=== PATIENT | female | born 2005 | race Caucasian/White ===

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

== ENCOUNTER 2025-09-10 08:14 | Emergency (ER) | payer BC, SELFPAY ==
[2025-09-10] VITALS (7 sets, daily range): BP systolic 124–165; BP diastolic 91–114; PULSE 90–120; RESP 13–28; TEMP 35.6; O2SAT 97–99; BMI 31.6
--- OUTSIDE RECORDS SUMMARY | 2025-09-10 08:18 | XMS_ITS | Clinical Summary ---
Author Organization [facility] Address [address] [place] [address]. [place] [address] Care Team Providers [employer]ator Name Role Phone Sukhdev Paul PA-C Primary Care Provider + Sukhdev Paul PA-C Unavailable Karla Prado Unavailable Teetee Alfaro [facility], [facility] Unavailable [phone] Allergies No known active allergies Medications * This document contains information received from the source organization and may not represent a complete record from that organization. etonogestrel-et hinyl estradiol (NUVARING) 0.12-0.015 MG/24HR vaginal ringIndications :Encounter for female control Place 1 each vaginally every 30 days. 3 each 3 4 Active venlafaxine (EFFEXOR XR) 75 MG 24 hr capsuleIndicati ons:Generalized anxiety disorder,Major depressive disorder with single episode, in partial remission TAKE 1 CAPSULE BY MOUTH EVERY DAY 90 capsule 1 5 Active hydrOXYzine HCl (ATARAX) 25 MG tabletIndicatio ns:Generalized anxiety disorder,Major depressive disorder with single episode, in partial remission TAKE 1 TABLET BY MOUTH 3 TIMES DAILY NEEDED FOR ANXIETY. 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 [facility] 02/16/2024 Encounters Date Type Department Care Team Description 07/16/2025 Refill [place] [address] [address] [facility], [address] [place] [address] Sukhdev Paul PA-C Medication Refill 06/23/2025 Results [address]-Up [address] [facility], [address] [place] [address] Sukhdev Paul PA-C Subj: Message about your results 06/20/2025 MyC Medical Advice [place] [address] [address] [facility], [address] [place] [address] Sukhdev Paul PA-C 06/18/2025 10:00 AM CDT Office Visit [address] [place] [facility], [address] [place] [address] Sukhdev Paul PA-C Annual physical exam (Primary Dx); Screening for STDs (sexually transmitted diseases); Cervical cancer screening; Generalized anxiety disorder; Major depressive disorder with single episode, in partial remission; Encounter for female control; Immunity status testing; Encounter for testing for latent tuberculosis; Moderate recurrent major depression (H) 06/18/2025 Travel from Last 3 Months Immunizations Immunization Administration Dates Next Due COVID-19 Bivalent 18+ (Moderna) 07/28/2022 COVID-19 Monovalent 12+ (Pfizer 2021) 11/11/2021 ,03/03/2021,02/10/2021 DTaP, Unspecified 03/23/2025,11/05/2014 DTaP/HepB/IPV 06/18/2025,05/15/2025,04/17/2025 Hep B, Adult (Heplisav- B) 05/15/2025,04/17/2025 INFLUENZA,TRIVALENT (FLUCELVAX) 06/13/2025,07/18 Influenza Vaccine >6 months,quad, PF 08/08/2023 MMR/V (Proquad) 03/24/2009 TDAP (Adacel,Boostrix) 03/23/2025 Varicella (Varivax) 03/24/2009 Family History Medical History Relation Comments Hyperlipidemia Father Thyroid Disease Father Coronary Artery Disease Maternal Grandfather Depression Maternal Grandfather Other Cancer Maternal Grandfather skin cancer Anxiety Disorder Mother Breast Cancer Mother in 2001 and 2022 Genetic Disorder Mother CHEK-2 Mutation Hypertension Mother Skin Cancer Mother Other Cancer Paternal Grandfather Lung Cancer Relation Status Comments Father Maternal Grandfather Mother Paternal Grandfather Social History Tobacco Use Types Packs/Day Years Used Date Smoking Tobacco: Former Cigarettes Q uit: 11/21/2023 Clove cigarettes or kreteks Smokeless Tobacco: Never Tobacco Cessation:Counseling Given: Not Answered Alcohol Use Standard Drinks/Week Comments Yes 0 (1 standard drink = 0.6 oz pur e alcohol) very rare, 1-2 times per week Social Connection and Isolation Panel Answer Date Recorded Frequency of Communication with Friends and Fami ly Not on file 06/18/2025 How often do you get together with friends or re latives? Once a week 06/18/2025 Attends Church Services Not on file 06/18 Active Member of Clubs or Organizations Not on f ile 06/18/2025 Attends Club or Organization Meetings Not on david e 06/18/2025 Marital Status Not on file 06/18/2025 PHQ-2 Answer Date Recorded PHQ-2 Score 2 06/18/2025 [facility] [facility] - Occupational Stress Questionnaire Answer Date Recorded Do you feel stress - tense, restless, nervous, or anxious, or unable to sleep at night because your mind is troubled all the time - these days? Rather much 06/18/2025 Exercise Vital Sign Answer Date Recorde d On average, how many days pe r week do you engage in moderate to strenuous exercise (like a brisk walk)? 3 days Minutes of Exercise per Session Not on file 06/18/2025 Adolescent Education Answer Date Record ed Getting School Help Needed Not on file 07/27 Food Insecurity Answer Date Recorded Within the past 12 months, d id you worry that your food would run out before you got money to buy more? No 06/18/2025 Within the past 12 months, d id the food you bought just not last and you didn t have money to get more? No 06/18/2025 Housing Stability Answer Date Recorded Do you have housing? (Maribel martini is defined as stable permanent housing and does not include staying outside in a car, in a tent, in an abandoned building, in an overnight care home, or couch-surfing.) Yes 06/18/2025 Are you worried about losing your housing? No 06/18/2025 Financial Resource Strain Answer Date R ecorded Within the past 12 months, h ave you or your family members you live with been unable to get utilities (heat, electricity) when it was really needed? No 06/18/2025 Transportation Needs Answer Date Record ed Within the past 12 months, h as lack of transportation kept you from medical appointments, getting your medicines, non-medical meetings or appointments, work, or from getting things that you need? No 06/18/2025 Interpersonal Safety Answer Date Record ed Do you feel physically and e motionally safe where you currently live? Yes 06/18/2025 Within the past 12 months, h ave you been hit, slapped, kicked or otherwise physically hurt by someone? No 06/18/2025 Within the past 12 months, h ave you been humiliated or emotionally abused in other ways by your partner or ex-partner? No 06/18/2025 Comments No Sex and Gender Information Value Date Recorded Sex Assigned at Not on file Legal Sex Female 4:16 PM CDT Gender Identity Not on file Sexual Orientation Not on file Last Filed Vital Signs Vital Sign Reading Time Taken Comments Blood Pressure 120/75 06/18/2025 10:28 AM CDT Pulse 97 06/18/2025 10:01 AM CDT Temperature 36.6 C (97.9 F) 06/18/2025 10:01 AM CDT Respiratory Rate 18 06/18/2025 10:01 AM CDT Oxygen Saturation 97% 06/18/2025 10:01 AM CDT Inhaled Oxygen Concentration - - Weight 84.8 kg (187 lb) 06/18/2025 10:01 AM CDT Height 164.6 cm (5' 4.8) 06/18/2025 10:01 AM CD T Body Mass Index 31.31 06/18/2025 10:01 AM CDT Plan of Treatment Upcoming Encounters Date Type Department Care Team (Late st Contact Info) Description 06/22/2026 10:00 AM CDT Office Visit [facility] [address], [address] [place] [address] Sukhdev Paul PA-C [address] [place] [address] Health Maintenance Due Date Last Done Comments HPV VACCINE (1 - 3-dose series) 2019 MENINGITIS B VACCINE (1 of 2 - Standard) 2020 COVID-19 VACCINE ( season) 2025 07/18/2024, 07/28/2022, 11/11/2021, Additional history exists DTAP/TDAP/TD VACCINE (3 - Td or Tdap) 12/19/2025 06/18/2025, 05/15/2025, 04/17/2025, Additional history exists PHQ-9 12/19/2025 06/18/2025, 11/05, 10/21/2024, Additional history exists ANNUAL REVIEW OF HM ORDERS 06/18/202606/18, 06/17/2024, 04/06/2023 CHLAMYDIA SCREENING 06/18/2026 06/18/2025, 06/17/2024, 04/06/2023 YEARLY PREVENTIVE VISIT 06/18/2026 06/18/20 25, 06/17/2024, 04/06/2023 PAP 06/18/2028 06/18/2025 ADVANCE CARE PLANNING 06/18/2030 06/18/2025 , 06/17/2024, 04/09/2023 ZOSTER VACCINE (1 of 2) 2054 HEPATITIS C SCREENING Completed 02/16/2024 HIV SCREENING Completed 02/16/2024 DEPRESSION ACTION PLAN Completed 09/11/2024 INFLUENZA VACCINE Completed 06/13/2025, , 08/08/2023 HEPATITIS B VACCINE Completed 06/18/2025, 05/15/2025, 05/15/2025, Additional history exists MENINGITIS VACCINE Aged Out No longer eligible based on patient's age to complete this topic PNEUMOCOCCAL VACCINE: PEDIATRICS (0 to 5 YEARS) AND AT-RISK PATIENTS (6 to 49 YEARS) Aged Out No longer eligible based on patient's age to complete this topic Procedures Procedure Name Priority Date/Time Associated Diagnosis Comments CHLAMYDIA TRACHOMATIS PCR Routine 06/18/2025 10:52 AM CDT Screening for STDs (sexually transmitted diseases) NEISSERIA GONORRHOEAE PCR Routine 06/18/2025 10:52 AM CDT Screening for STDs (sexually transmitted diseases) CBC WITH PLATELETS & DIFFERENTIAL Routine 06/18/2025 10:49 AM CDT Annual physical exam QUANTIFERON-TB GOLD PLUS Routine 06/18/2025 10:49 AM CDT Encounter for testing for latent tuberculosis QUANTIFERON TB GOLD PLUS Routine 06/18/2025 10:49 AM CDT Encounter for testing for latent tuberculosis QUANTIFERON TB GOLD PLUS PURPLE TUBE Routine 06/18/2025 10:49 AM CDT Encounter for testing for latent tuberculosis QUANTIFERON TB GOLD PLUS YELLOW TUBE Routine 06/18/2025 10:49 AM CDT Encounter for testing for latent tuberculosis QUANTIFERON TB GOLD PLUS GREEN TUBE Routine 06/18/2025 10:49 AM CDT Encounter for testing for latent tuberculosis QUANTIFERON TB GOLD PLUS MEZA TUBE Routine 06/18/2025 10:49 AM CDT Encounter for testing for latent tuberculosis QUANTIFERON TB GOLD PLUS PRIMARY Routine 06/18/2025 10:49 AM CDT Encounter for testing for latent tuberculosis QUANTIFERON TB GOLD PLUS COLLECTION Routine 06/18/2025 10:49 AM CDT Encounter for testing for latent tuberculosis CBC WITH PLATELETS AND DIFFERENTIAL Routine 06/18/2025 10:49 AM CDT Annual physical exam COMPREHENSIVE METABOLIC PANEL Routine 06/18/2025 10:49 AM CDT Annual physical exam HEPATITIS B SURFACE ANTIBODY Routine 06/18/2025 10:49 AM CDT Immunity status testing GYNECOLOGIC CYTOLOGY Routine 06/18/2025 10:26 AM CDT Cervical cancer screening HIV ANTIGEN ANTIBODY COMBO Routine 02/16/2024 1:16 PM CDT Screening for HIV (human immunodeficiency virus) Screening for STDs (sexually transmitted diseases) HEPATITIS C SCREEN REFLEX TO HCV RNA QUANT AND GENOTYPE Routine 02/16/2024 1:16 PM CDT Need for hepatitis C screening test from Last 3 Months or Most Recently Relevant to Health Maintenance Results * NEISSERIA GONORRHOEA PCR (06/18/2025 10:52 AM CDT) Neisseria gonorrhoeae Negative Negative 06/19/2025 9:56 AM CDT [facility] Comment:Negative for N. gono rrhoeae rRNA by payroll accountant mediated amplification. A negative result by payroll accountant mediated amplification does not preclude the presence of C. trachomatis infection because results are dependent on proper and adequate collection, absence of inhibitors and sufficient rRNA to be detected. Neisseria gonorrhoeae Specimen Source Urine, Voided 06/19/2025 9:56 AM CDT [facility] Urine URETHRAL STRUCTURE / Unknown Non-blood Collection / Unknown 06/18/2025 10:52 AM CDT 06/18/2025 10:52 AM CDT us Sukhdev Paul PA-C LAB - MICRO GENERAL ORDE YU Final Result [facility] Inf. Diseases Diag. Lab [address] [facility], [address] [place] [address], [facility] * CHLAMYDIA TRACHOMATIS PCR (06/18/2025 10:52 AM CDT) Chlamydia trachomatis Negative Negative 06/19/2025 9:56 AM CDT [facility] Comment:A negative result by payroll accountant mediated amplification does not preclude the presence of C. trachomatis infection because results are dependent on proper and adequate collection, absence of inhibitors and sufficient rRNA to be detected. Chlamydia trachomatis Specimen Source Urine, Voided 06/19/2025 9:56 AM CDT [facility] Urine URETHRAL STRUCTURE / Unknown Non-blood Collection / Unknown 06/18/2025 10:52 AM CDT 06/18/2025 10:52 AM CDT Sukhdev Paul PA-C LAB - MICRO GENERAL ORDE YU Final Result [facility] Inf. Diseases Diag. Lab [address] [facility], [address] [place] [address] * Quantiferon TB Gold Plus (06/18/2025 10:49 AM CDT) [facility] Quantiferon-TB Gold Plus Negative Negative 06/20/2025 1:24 PM CDT [facility] CORE/PROT/END O Comment: No interferon gamma response to M.tuberculosis antigens was detected. Infection with M.tuberculosis is unlikely, however a single negative result does not exclude infection. In patients at high risk for infection, a second test should be considered in accordance with the 2017 ATS/IDSA/CDC Clinical Pract ice Guidelines for Diagnosis of Tuberculosis in Adults and Children TB1 Ag minus Nil Value 0.26 IU/mL 06/20/2025 1:24 PM CDT [facility] CORE/PROT/END O TB2 Ag minus Nil Value 0.22 IU/mL 06/20/2025 1:24 PM CDT [facility]/PROT/END O Mitogen minus Nil Result 9.97 IU/mL 06/20/2025 1:24 PM CDT SPECIALTY CORE/PROT/END O Nil Result 0.03 IU/mL 06/20/2025 1:24 PM CDT [facility] C[facility]/PROT/END O Blood BLOOD SPECIMEN / Unknown Venipuncture / Unknown 06/18/2025 10:49 AM CDT 06/18/2025 10:48 PM CDT Sukhdev Paul PA-C LAB - MICRO GENERAL ORDJusto RABLES Final Result [facility] C[facility]/PROT/ENDO [facility] Specialty Core/Prot/Endo [address] [facility], [address] * Quantiferon TB Gold Plus Purple Tube (06/18/2025 10:49 AM CDT) Quantiferon Mitogen 10.00 IU/mL 06/20/2025 8:53 AM CDT [facility]/PROT/ENDO Blood BLOOD SPECIMEN / Unknown Venipuncture / Unknown 06/18/2025 10:49 AM CDT 06/18/2025 10:48 PM CDT Sukhdev Paul PA-C LAB - MICRO GENERAL SAMIRA NICHOLAS Final Result [facility] CORE/PROT/ENDO [facility] Specialty Core/Prot/Endo [address] [facility], [address] * Quantiferon TB Gold Plus Yellow Tube (06/18/2025 10:49 AM CDT) Quantiferon TB2 Tube 0.25 06/20/2025 8:52 AM CDT SPECIALTY CORE/PROT/ENDO Blood BLOOD SPECIMEN / Unknown Venipuncture / Unknown 06/18/2025 10:49 AM CDT 06/18/2025 10:48 PM CDT Sukhdev Paul PA-C LAB - MICRO GENERAL SAMIRA NICHOLAS Final Result [facility] CORE/PROT/ENDO [facility] Specialty Core/Prot/Endo [address] [facility], [address] * Quantiferon TB Gold Plus Green Tube (06/18/2025 10:49 AM CDT) Quantiferon TB1 Tube 0.29 IU/mL 06/20/2025 8:52 AM CDT SPECIALTY CORE/PROT/ENDO Blood BLOOD SPECIMEN / Unknown Venipuncture / Unknown 06/18/2025 10:49 AM CDT 06/18/2025 10:48 PM CDT Sukhdev Paul PA-C LAB - MICRO GENERAL ORDE YU Final Result [facility]TY CORE/PROT/ENDO Specialty Core/Prot/Endo [address] [facility], [address] * Quantiferon TB Gold Plus Meza Tube (06/18/2025 10:49 AM CDT) Quantiferon Nil Tube 0.03 IU/mL 06/20/2025 8:52 AM CDT [facility] CORE/PROT/ENDO Blood BLOOD SPECIMEN / Unknown Venipuncture / Unknown 06/18/2025 10:49 AM CDT 06/18/2025 10:48 PM CDT Sukhdev Paul PA-C LAB - MICRO GENERAL SAMIRA NICHOLAS Final Result [facility] SPECIALTY CORE/PROT/ENDO Specialty Core/Prot/Endo [address] [facility], [address] * CBC with platelets and differential (06/18/2025 10:49 AM CDT) WBC Count 6.58 4.00 - 11.00 10e3/uL 06/18/2025 10:59 AM CDT [facility] RBC Count 5.11 3.80 - 5.20 10e6/uL 06/18/2025 10:59 AM CDT [facility] Hemoglobin 15.2 11.7 - 15.7 g/dL 06/18/2025 10:59 AM CDT [facility] Hematocrit 45.0 35.0 - 47.0 % 06/18/2025 10:59 AM CDT [facility] MCV 88.1 78.0 - 100.0 fL 06/18/2025 10:59 AM CDT [facility] MCH 29.7 26.5 - 33.0 pg 06/18/2025 10:59 AM CDT [facility] MCHC 33.8 31.5 - 36.5 g/dL 06/18/2025 10:59 AM CDT [facility] RDW 11.8 10.0 - 15.0 % 06/18/2025 10:59 AM CDT [facility] Platelet Count 336 150 - 450 10e3/uL 06/18/2025 10:59 AM CDT [facility] % Neutrophils 52.3 % 06/18/2025 10:59 AM CDT [facility] % Lymphocytes 37.7 % 06/18/2025 10:59 AM CDT [facility] % Monocytes 6.7 % 06/18/2025 10:59 AM CDT [facility] % Eosinophils 2.9 % 06/18/2025 10:59 AM CDT [facility] % Basophils 0.2 % 06/18/2025 10:59 AM CDT [facility] % Immature Granulocytes 0.2 % 06/18/2025 10:59 AM CDT [facility] Absolute Neutrophils 3.45 1.60 - 8.30 10e3/uL 06/18/2025 10:59 AM CDT [facility] Absolute Lymphocytes 2.48 0.80 - 5.30 10e3/uL 06/18/2025 10:59 AM CDT [facility] Absolute Monocytes 0.44 0.00 - 1.30 10e3/uL 06/18/2025 10:59 AM CDT [facility] Absolute Eosinophils 0.19 0.00 - 0.70 10e3/uL 06/18/2025 10:59 AM CDT [facility] Absolute Basophils <0.04 0.00 - 0.20 10e3/uL 06/18/2025 10:59 AM CDT [facility] Absolute Immature Granulocytes <0.04 <=0.40 10e3/uL 06/18/2025 10:59 AM CDT [facility] Blood STRUCTURE OF LEFT UPPER LIMB / Unknown Venipuncture / Unknown 06/18/2025 10:49 AM CDT 06/18/2025 10:50 AM CDT us Sukhdev Paul PA-C LAB - BLOOD ORDERABLES F inal Result LABORATORY [facility] [address] [facility], [address] [place] [address] * Hepatitis B Surface Antibody (06/18/2025 10:49 AM CDT) [facility] Signature Hepatitis B Surface Antibody Reactive 06/18/2025 10:01 PM CDT [facility] Comment:A reactive result in dicates recovery from acute or chronic hepatitis B virus (HBV) infection or acquired immunity from HBV vaccination. This assay does not differentiate between a vaccine-induced immune response and an immune response induced by infection with HBV. A positive total antihepatitis B core result would indicate that the hepatitis B surface antibody response is due to past HBV infection. Hepatitis B Surface Antibody Instrument Value >1,000.00 <8.5 m[IU]/mL 06/18/2025 10:01 PM CDT [facility] Comment: Assay performance characteristics have not been established for the use of the Elecsys Anti-HBs assay as an aid in determining susceptibility to HBV infection prior to or following vaccination in infants, children, or adolescents. Blood STRUCTURE OF LEFT UPPER LIMB / Unknown Venipuncture / Unknown 06/18/2025 10:49 AM CDT 06/18/2025 10:50 AM CDT Sukhdev Paul PA-C LAB - BLOOD ORDERABLES F inal Result LABORATORY [facility] [place] [facility] [address] [facility], [address] * Quantiferon TB Gold Plus Collection (06/18/2025 10:49 AM CDT) Blood BLOOD SPECIMEN / Unknown Venipuncture / Unknown 06/18/2025 10:49 AM CDT 06/18/2025 10:50 AM CDT Sukhdev Paul PA-C LAB - MICRO GENERAL ORDE RABLES Final Result SPECIALTY CORE/PROT/ENDO Specialty Core/Prot/Endo [address] [facility], [address] * Quantiferon TB Gold Plus Primary (06/18/2025 10:49 AM CDT) Blood BLOOD SPECIMEN / Unknown Venipuncture / Unknown 06/18/2025 10:49 AM CDT 06/18/2025 10:48 PM CDT Sukhdev Paul PA-C LAB - MICRO GENERAL SAMIRA NICHOLAS Final Result [facility] CORE/PROT/ENDO [facility] Specialty Core/Prot/Endo [address] [facility], [address] [place] [address] * Comprehensive metabolic panel (BMP + Alb, Alk Phos, ALT, AST, Total. Bili, TP) (06/18/2025 10:49 AMCDT) Sodium 139 135 - 145 mmol/L 06/18/2025 9:53 PM CDT [facility] Potassium 4.2 3.4 - 5.3 mmol/L 06/18/2025 9:53 PM CDT [facility] Carbon Dioxide (CO2) 22 22 - 29 mmol/L 06/18/2025 9:53 PM CDT [facility] Anion Gap 11 7 - 15 mmol/L 06/18/2025 9:53 PM CDT [facility] Urea Nitrogen 11.5 6.0 - 20.0 mg/dL 06/18/2025 9:53 PM CDT [facility] Creatinine 0.66 0.51 - 0.95 mg/dL 06/18/2025 9:53 PM CDT [facility] GFR Estimate >90 >60 mL/min/1.7 3m2 06/18/2025 9:53 PM CDT [facility] Comment:eGFR calculated usin 2020 CKD-EPI equation. Calcium 9.8 8.8 - 10.4 mg/dL 06/18/2025 9:53 PM CDT [facility] Chloride 106 98 - 107 mmol/L 06/18/2025 9:53 PM CDT [facility] Glucose 87 70 - 99 mg/dL 06/18/2025 9:53 PM CDT [facility] Alkaline Phosphatase 52 40 - 150 U/L 06/18/2025 9:53 PM CDT [facility] AST 25 0 - 45 U/L 06/18/2025 9:53 PM CDT [facility] ALT 19 0 - 50 U/L 06/18/2025 9:53 PM CDT [facility] Protein Total 8.1 6.4 - 8.3 g/dL 06/18/2025 9:53 PM CDT [facility] Albumin 4.4 3.5 - 5.2 g/dL 06/18/2025 9:53 PM CDT [facility] Bilirubin Total 0.3 <=1.2 mg/dL 06/18/2025 9:53 PM CDT [facility] Blood STRUCTURE OF LEFT UPPER LIMB / Unknown Venipuncture / Unknown 06/18/2025 10:49 AM CDT 06/18/2025 10:50 AM CDT us Sukhdev Paul PA-C LAB - BLOOD ORDERABLES F inal Result [facility] [place] [facility] [address] [facility], [address] [phone] * Pap Screen Only - Recommended Age 21 - 24 Years (06/18/2025 10:26 AM CDT) Interpretation Negative for Intraepithelial Lesion or Malignancy (NILM) 06/23/2025 8:56 AM CDT [facility] LABS at 0856 CDT Comment Papanicolaou Test Limitations: Cervical cytology is a screening test with limited sensitivity, and regular screening is critical for cancer prevention. Pap tests are primarily effective for the diagnosis/prevent ion of squamous cell carcinoma, not adenocarcinoma or other cancers. 06/23/2025 8:56 AM CDT [facility] Specimen Adequacy Satisfactory for evaluation, endocervical/condon sformation zone component absent 06/23/2025 8:56 AM CDT [facility] Clinical Information none 06/23/2025 8:56 AM CDT [facility] LMP/Menopause Date 05/30/2025 06/23/2025 8:56 AM CDT [facility] Reflex Testing No 06/23/2025 8:56 AM CDT [facility] Previous Abnormal? No 06/23/2025 8:56 AM CDT [facility] Performing Labs The technical component of this testing was completed at [facility]. Stain controls for all stains resulted within this report have been reviewed and show appropriate reactivity. 06/23/2025 8:56 AM CDT [facility] Brushing ENDOCERVICAL STRUCTURE / Unknown 06/18/2025 10:26 AM CDT 06/18/2025 10:46 AM CDT Sukhdev Paul PA-C LAB - BEAKER AP Final Re sult [facility] [address] [facility], [address] [place] [phone] * HIV Antigen Antibody Combo (02/16/2024 1:16 PM CDT) HIV Antigen Antibody Combo Nonreactive Nonreactive 02/16/2024 5:59 PM CDT [facility] Comment:Negative HIV-1 p24 a ntigen and HIV-1/2 antibody screening test results usually indicate the absence of HIV-1 and HIV-2 infection. However, such negative results do not rule-out acute HIV infection. If acute HIV-1 or HIV-2 infection is suspected, detection of HIV-1 or HIV-2 RNA is recommended. Blood STRUCTURE OF LEFT UPPER LIMB / Unknown Venipuncture / Unknown 02/16/2024 1:16 PM CDT 02/16/2024 1:16 PM CDT Sukhdev Paul PA-C LAB - BLOOD ORDERABLES F inal Result Performing Organization Address City/[facility]/ZIP Co de Phone Number [facility] [place] [facility] [address] [facility], [address] [place] [phone] * Hepatitis C Screen Reflex to HCV RNA Quant and Genotype (02/16/2024 1:16 PM CDT) Hepatitis C Antibody Nonreactive Nonreactive 02/16/2024 5:38 PM CDT [facility] Comment:A nonreactive screen ing test result does not exclude the possibility of exposure to or infection with HCV. Nonreactive screening test results in individuals with prior exposure to HCV may be due to antibody levels below the limit of detection of this assay or lack of reactivity to the HCV antigens used in this assay. Patients with recent HCV infections (<3 months from time of exposure) may have false- negative HCV antibody results due to the time needed for seroconversion (average of 8 to 9 weeks). Blood STRUCTURE OF LEFT UPPER LIMB / Unknown Venipuncture / Unknown 02/16/2024 1:16 PM CDT 02/16/2024 1:16 PM CDT us Sukhdev Paul PA-C LAB - BLOOD ORDERABLES F inal Result LABORATORY [facility] [place] [facility] [address] [facility], [address] [place] [address] from Last 3 Months or Most Recently Relevant to Health Maintenance Insurance BCBS OUT OF STATE BCBS OUT OF STATE OUT OF STATE Care Teams [employer] Relationship Specialty Start Date End Date Sukhdev Paul PA-C [address] [place], [place] [address] PCP - General Physician Cat Hooker - Medical 04/06/23 Sukhdev Paul PA-C [address] [place], [place] [address] Assigned PCP 03/14/23 Karla Prado GC Genetic Counseling Graduate Program Office [address] [place] [address] [address] [place], [place] [address] Genetic Counselor Genetic Counselor, MS 07/30/23 Teetee Alfaro, [facility], [facility] Assigned Behavioral Health Provider 02/26/24
--- OUTSIDE RECORDS SUMMARY | 2025-09-10 08:18 | XMS_ITS | Encounter Summary ---
Author Organization [place] Address [address] [place] [address]. [place] [address] Care Team Providers Care Day Care Director Name Role Phone Sukhdev Paul PA-C Primary Care Provider + Sukhdev Paul PA-C Unavailable [phone] Karla Prado Unavailable [phone] Teetee Alfaro [facility] Unavailable Encounter Details Date Type Department Care Team (Late st Contact Info) Description 12/25/2023 [facility] Medical Advice [facility] [place] [address] [facility] [address] [place] [address] [facility] Social History Tobacco Use Types Packs/Day Years Used Date Smoking Tobacco: Never Smokeless Tobacco: Never Alcohol Use Standard Drinks/Week Comments Yes 0 (1 standard drink = 0.6 oz pur e alcohol) 1-2 times per week PHQ-2 Answer Date Recorded PHQ-2 Score 2 10/11/2023 Adolescent Education Answer Date Record ed Getting School Help Needed Not on file 07/27 Comments No Sex and Gender Information Value Date Recorded Sex Assigned at Not on file Legal Sex Female 4:16 PM CDT Gender Identity Not on file Sexual Orientation Not on file documented as of this encounter Plan of Treatment Upcoming Encounters Date Type Department Care Team (Late st Contact Info) Description 06/22/2026 10:00 AM CDT Office Visit [facility] [address] [place] [address] Sukhdev Paul PA-C [address] [place] [id number] documented as of this encounter Visit Diagnoses Not on filedocumented in this encounter Additional Health Concerns Assessment Noted Time PHQ-9 Depression Total Score: 5 07/10/20 23 12:07 PM CDT documented as of this encounter Care Teams Day Care Director Relationship Specialty Start Date End Date Sukhdev Paul PA-C [address] [place] [address] PCP - General Physician Cemetery Laborer - Medical 04/06/23 Sukhdev Paul PA-C [address] [place] [address] Assigned PCP 03/14/23 Karla Prado GC Genetic Counseling Graduate Program Office [address] [place] [address] [address] [place] [address] Genetic Counselor Genetic Counselor, MS 07/30/23 Teetee Alfaro, [facility] Assigned Behavioral Health Provider 02/26/24 documented as of this encounter
--- OUTSIDE RECORDS SUMMARY | 2025-09-10 08:18 | XMS_ITS | Clinical Summary ---
Author Organization [facility] Address [address] [address] Care Team Providers Care Hospital Insurance Clerk Name Role Phone Unavailable Primary Care Provider Unavailabl e Source Comments You are receiving this document as you are listed as the primary care provider,follow-up provider, or the patient has been referred to you for consultation.This is in compliance with the Medicare and[facility] EHR Incentive Program,which states Providers who transition their patient to another setting of careor provider of care or refers their patient to another provider of care shouldprovide summary care record for each transition of care or referral. [employer] Allergies No known active allergies Medications No known medications Active Problems No known active problems Immunizations Immunization Administration Dates Next Due HepB Adult (Heplisav-B, 19+ yrs, 2 dose series) 05/15/2025,04/17/2025 Tdap 03/23/2025 Social History Tobacco Use Types Packs/Day Years Used Date Smoking Tobacco: Never Passive Smoke Exposure: Never Smokeless Tobacco: Never Tobacco Cessation:Counseling Given: Not Answered Comments No Sex and Gender Information Value Date Recorded Sex Assigned at Not on file Legal Sex Female 9:29 AM CDT Gender Identity Not on file Sexual Orientation Not on file Last Filed Vital Signs Vital Sign Reading Time Taken Comments Blood Pressure 126/82 09/02/2022 11:30 AM CDT Pulse 99 09/02/2022 11:30 AM CDT Temperature 36.8 C (98.2 F) 09/02/2022 11:30 AM CDT Respiratory Rate 16 09/02/2022 11:30 AM CDT Oxygen Saturation 100% 09/02/2022 11:30 AM CDT Inhaled Oxygen Concentration - - Weight - - Height - - Body Mass Index - - Plan of Treatment Health Maintenance Due Date Last Done Comments Cervical Cancer Screening Due 2004 Chlamydia 2004 Hep C Screening (Preventive Services) 2004 MenB Immunization Discussion 2004 HPV Vaccine (1 - 3-dose series) 2019 HIV Screening (Preventive Services) 2020 Adult Preventive Visit 2022 COVID-19 Vaccine (1 - 2023-2 5 season) 2025 Influenza Vaccine (#1) 2025 DTaP/Tdap/Td Vaccine (2 - Tdap) 03/23/2035 03/23/2025 Zoster/Shingles Vaccine (1 o f 2) 2054 HepB Vaccine Completed 05/15/2025, 04/17/2025 HepA Vaccine Aged Out No longer eligi ble based on patient's age to complete this topic Hib Vaccine Aged Out No longer eligi ble based on patient's age to complete this topic IPV (Polio) Vaccine Aged Out No longe r eligible based on patient's age to complete this topic MCV4 Vaccine Aged Out No longer eligi ble based on patient's age to complete this topic Pneumococcal Vaccine Aged Out No long er eligible based on patient's age to complete this topic Insurance BCBS OUT OF STATE
--- OUTSIDE RECORDS SUMMARY | 2025-09-10 08:18 | XMS_ITS | Encounter Summary ---
Author Organization [place] Address [address] [place] [address]. [place] [address] Care Team Providers Care Ultrasound Supervisor Name Role Phone Sukhdev Paul PA-C Primary Care Provider + Sukhdev Paul PA-C Unavailable Karla Prado Unavailable [phone] Teetee Alfaro [facility] Unavailable Encounter Details Date Type Department Care Team (Late st Contact Info) Description 12/05/2023 [facility] Medical Advice [facility] Care [address] [place] [address] [facility] Social History Tobacco Use Types Packs/Day Years [...] Description 06/22/2026 10:00 AM CDT Office Visit [address], [address] [place] [address] Sukhdev Paul PA-C [address] [place] [id number] documented as of this encounter Visit Diagnoses Not on filedocumented in this encounter Additional Health Concerns Assessment Noted Time PHQ-9 Depression Total Score: 5 07/10/20 23 12:07 PM CDT documented as of this encounter Care Teams Ultrasound Supervisor Relationship Specialty Start Date End Date Sukhdev Paul PA-C [address] [place] [address] PCP - General Physician Mobile Plant Operators - Medical 04/06/23 Sukhdev Paul PA-C [address] [place] [address] Assigned PCP 03/14/23 Karla Prado GC Genetic Counseling Graduate Program Office [address] [place] [address] [address] [place] [address] Genetic Counselor Genetic Counselor, MS 07/30/23 Teetee Alfaro, [facility] Assigned Behavioral Health Provider 02/26/24 documented as of this encounter
--- OUTSIDE RECORDS SUMMARY | 2025-09-10 08:18 | XMS_ITS | Encounter Summary ---
Author Organization [place] Address [address] [place] [address]. [place] [address] Care Team Providers Care Tribal Delegate Name Role Phone Sukhdev Paul PA-C Primary Care Provider + Sukhdev Paul PA-C Unavailable Karla Prado Unavailable [phone] Teetee Alfaro [facility] Unavailable Encounter Details Date Type Department Care Team (Late st Contact Info) Description 06/19/2024 [facility] Medical Advice [address], [address] [place] [address] Maggie Wong, HARD METALS HAND ENGRAVER Social History Tobacco Use Types Packs/Day Years Used Date Smoking Tobacco: Some Days Cigarettes Last attempted t o quit: 11/21/2023 Clove cigarettes or kreteks Smokeless Tobacco: Never Comments:i smoke very infreq uently, maybe once per 3 months but usually not at all. Alcohol Use Standard Drinks/Week Comments Yes 0 (1 standard drink = 0.6 oz pur e alcohol) very rare, 1-2 times per week Social Connection and Isolation Panel Answer Date Recorded Frequency of Communication with Friends and Fami ly Not on file 06/16/2024 How often do you get together with friends or re latives? Twice a week 06/16/2024 Attends Taoist Services Not on file 06/16 Active Member of Clubs or Organizations Not on f ile 06/16/2024 Attends Club or Organization Meetings Not on david e 06/16/2024 Marital Status Not on file 06/16/2024 PHQ-2 Answer Date Recorded PHQ-2 Score 2 06/17/2024 [facility] - Occupational Stress Questionnaire Answer Date Recorded Do you feel stress - tense, restless, nervous, or anxious, or unable to sleep at night because your mind is troubled all the time - these days? Rather much 06/16/2024 Exercise Vital Sign Answer Date Recorde d On average, how many days pe r week do you engage in moderate to strenuous exercise (like a brisk walk)? 3 days 06/16/2024 On average, how many minutes do you engage in exercise at this level? 20 min 06/16/2024 Adolescent Education Answer Date Record ed Getting School Help Needed Not on file 07/27 Food Insecurity Answer Date Recorded Within the past 12 months, d id you worry that your food would run out before you got money to buy more? No 06/16/2024 Within the past 12 months, d id the food you bought just not last and you didn t have money to get more? No 06/16/2024 Housing Stability Answer Date Recorded Do you have housing? (Housin g is defined as stable permanent housing and does not include staying outside in a car, in a tent, in an abandoned building, in an overnight skilled nursing, or couch-surfing.) Yes 06/16/2024 Are you worried about losing your housing? No 06/16/2024 Financial Resource Strain Answer Date R ecorded Within the past 12 months, h ave you or your family members you live with been unable to get utilities (heat, electricity) when it was really needed? No 06/16/2024 Transportation Needs Answer Date Record ed Within the past 12 months, h as lack of transportation kept you from medical appointments, getting your medicines, non-medical meetings or appointments, work, or from getting things that you need? No 06/16/2024 Interpersonal Safety Answer Date Record ed Do you feel physically and e motionally safe where you currently live? Yes 06/17/2024 Within the past 12 months, h ave you been hit, slapped, kicked or otherwise physically hurt by someone? No 06/17/2024 Within the past 12 months, h ave you been humiliated or emotionally abused in other ways by your partner or ex-partner? No 06/17/2024 Comments No Sex and Gender Information Value Date Recorded Sex Assigned at Not on file Legal Sex Female 4:16 PM CDT Gender Identity Not on file Sexual Orientation Not on file documented as of this encounter Plan of Treatment Upcoming Encounters Date Type Department Care Team (Late st Contact Info) Description 06/22/2026 10:00 AM CDT Office Visit [facility] [place] [address] [facility], [address] [place] [address] Sukhdev Paul PA-C [address] [place] [id number] documented as of this encounter Visit Diagnoses Not on filedocumented in this encounter Additional Health Concerns Assessment Noted Time PHQ-9 Depression Total Score: 13 024 3:45 PM CDT documented as of this encounter Care Teams Tribal Delegate Relationship Specialty Start Date End Date Sukhdev Paul PA-C [address] [place] [address] PCP - General Physician Watchstander - Medical 04/06/23 Sukhdev Paul PA-C [address] [place] [address] Assigned PCP 03/14/23 Karla Prado GC Genetic Counseling Graduate Program Office [address] [place] [address] [address] [place], [place] [address] Genetic Counselor Genetic Counselor, MS 07/30/23 Teetee Alfaro, [facility], [facility] Assigned Behavioral Health Provider 02/26/24 documented as of this encounter
--- OUTSIDE RECORDS SUMMARY | 2025-09-10 08:18 | XMS_ITS | Encounter Summary ---
Author Organization [place] Address [address] [place] [address]. [place] [address] Care Team Providers Care Rn Chemical Dependency Name Role Phone Sukhdev Paul PA-C Primary Care Provider + Sukhdev Paul PA-C Unavailable Karla Prado Unavailable Teetee [facility]faro [facility] Unavailable Encounter Details Date Type Department Care Team (Late st Contact Info) Description 05/05/2023 [facility] Medical Advice [address], [address] [place] [address] Sukhdev Paul PA-C [address] [facility] [address] [place] [address] Social History Tobacco Use Types Packs/Day Years Used Date Smoking Tobacco: Never Smokeless Tobacco: Never Alcohol Use Standard Drinks/Week Comments Yes 0 (1 standard drink = 0.6 oz pur e alcohol) very rare, 1-2 times per week PHQ-2 Answer Date Recorded PHQ-2 Score 5 04/09/2023 Comments No Sex and Gender Information Value Date Recorded Sex Assigned at Not on file Legal Sex Female 4:16 PM CDT Gender Identity Not on file Sexual Orientation Not on file COVID-19 Exposure Response Date Recorded In the last 10 days, have yo u been in contact with someone who was confirmed or suspected to have Coronavirus/COVID-19? No / Unsure 04/06/2023 8:59 AM CDT documented as of this encounter Miscellaneous Notes * Telephone Encounter - Maggie Wong CMA - 05/07/2023 7:56 AM CDT Please see metraTect message documented in this encounter Plan of Treatment Upcoming Encounters Date Type Department Care Team (Late st Contact Info) Description 06/22/2026 10:00 AM CDT Office Visit [facility] [address] [place] [phone] Sukhdev Paul PA-C [address] [place] [id number] documented as of this encounter Visit Diagnoses Not on filedocumented in this encounter Additional Health Concerns Assessment Noted Time PHQ-9 Depression Total Score: 11 023 6:13 PM CDT documented as of this encounter Care Teams Rn Chemical Dependency Relationship Specialty Start Date End Date Sukhdev Paul PA-C [address] [place] [address] PCP - General Physician Tumbling Barrel Painter - Medical 04/06/23 Sukhdev Paul PA-C [address] [place] [address] Assigned PCP 03/14/23 Karla Prado GC Genetic Counseling Graduate Program Office [address] [place] [address] [address] [place], [place] [address] Genetic Counselor Genetic Counselor, MS 07/30/23 Teetee Alfaro, [facility], LADC Assigned Behavioral Health Provider 02/26/24 documented as of this encounter
--- OUTSIDE RECORDS SUMMARY | 2025-09-10 08:18 | XMS_ITS | Encounter Summary ---
Author Organization [facility] Address [address] [place] [address]. [place] [address] Care Team Providers Care Hat Finisher Name Role Phone Sukhdev Paul PA-C Primary Care Provider + Sukhdev Paul PA-C Unavailable [phone] Karla Prado Unavailable [phone] Teetee Alfaro [facility], [facility] Unavailable [phone] Encounter Details Date Type Department Care Team (Latest Contact Info) Description 04/06/2023 Historic Results Social History Tobacco Use Types Packs/Day Years [...] AM CDT documented as of this encounter Plan of Treatment Upcoming Encounters Date Type Department Care Team (Late st Contact Info) Description 06/22/2026 10:00 AM CDT Office Visit [address], [address] [place] [address] Sukhdev Paul PA-C [address] [place] [id number] documented as of this encounter Visit Diagnoses Not on filedocumented in this encounter Additional Health Concerns Assessment Noted Time PHQ-9 Depression Total Score: 12 023 8:33 PM CDT documented as of this encounter Care Teams Hat Finisher Relationship Specialty Start Date End Date Sukhdev Paul PA-C [address] [place] [address] PCP - General Physician Marketing Intern - Medical 04/06/23 Sukhdev Paul PA-C [address] [place] [address] Assigned PCP 03/14/23 Karla Prado GC Genetic Counseling Graduate Program Office [address] [place] [address] [address] [place] [address] Genetic Counselor Genetic Counselor, MS 07/30/23 Teetee Alfaro, [facility], [facility] Assigned Behavioral Health Provider 02/26/24 documented as of this encounter
--- OUTSIDE RECORDS SUMMARY | 2025-09-10 08:18 | XMS_ITS | Clinical Summary ---
Author Organization [email or web address] Address [address] [place] [address] Care Team Providers Care Surface Water Manager Name Role Phone Provider, No Primary Primary Care Provider Unava ilable Allergies No known active allergies Medications venlafaxine (EFFEXOR-XR) 37.5 mg oral Capsule, Sust. Release 24HR Take 1 Capsule (37.5 mg) by mouth in the morning. 12/10/2023 Active phenazopyridine (PYRIDIUM) 200 mg oral Tablet Take 1 Tablet (200 mg) by mouth if needed in the morning, at noon, and before bedtime. 12/09/2023 Active hydrOXYzine HCL (ATARAX) 25 mg oral Tablet Take 1 Tablet (25 mg) by mouth if needed in the morning, at noon, and before bedtime. 04/24/2023 Active etonogestreL-et hinyl estradioL (NUVARING) 0.12-0.015 mg/24 hr vaginal Ring 1 Each (1 Ring) by vaginal route every 30 days. 12/10/2023 Active Active Problems Problem Noted Date Diagnosed Date Anxiety 12/10/2023 Social History Tobacco Use Types Packs/Day Years Used Date Smoking Tobacco: Never Smokeless Tobacco: Never Tobacco Cessation:Counseling Given: Not Answered Depression (PHQ-9) Answer Date Recorded Last PHQ-9 Score Not on file 12/10/2023 Thoughts of self harm Not on file 12/10/2023 Intimate Partner Violence Answer Date R ecorded Are you in a relationship wh ere you are physically hurt, threatened and/or made to feel afraid? No 12/10/2023 Comments Unknown Sex and Gender Information Value Date Recorded Sex Assigned at Not on file Legal Sex Female 11:54 AM BROADCAST METEOROLOGIST Gender Identity Not on file Sexual Orientation Not on file Last Filed Vital Signs Vital Sign Reading Time Taken Comments Blood Pressure 106/76 12/10/2023 4:21 PM BROADCAST METEOROLOGIST Pulse 99 12/10/2023 4:21 PM BROADCAST METEOROLOGIST Temperature 37.6 C (99.6 F) 12/10/2023 4:21 PM BROADCAST METEOROLOGIST Respiratory Rate 16 12/10/2023 4:21 PM BROADCAST METEOROLOGIST Oxygen Saturation 96% 12/10/2023 4:21 PM BROADCAST METEOROLOGIST Inhaled Oxygen Concentration - - Weight 85 kg (187 lb 8 oz) 12/10/2023 4:21 PM CS T Height - - Body Mass Index - - Plan of Treatment Health Maintenance Due Date Last Done Comments Hepatitis C Testing 2004 Depression Screening 2016 HIV Screen 2019 HPV Vaccines (1 - 3-dose series) 2019 Meningococcal B Vaccines (1 of 2 - Standard) 2020 Hepatitis B Vaccines (1 of 3 - 19+ 3-dose series) 2023 Chlamydia Screen Age 16-24 Years 04/06/2024 04/06/20 23 DTaP/Tdap/Td Vaccines (2 - Tdap) 11/05/2024 11/05/19 15 Cervical Cancer Screening 2025 COVID-19 Vaccine (1 - 2024-2 6 season) 2025 Influenza Vaccine (#1) 2025 08/08/2023 Varicella Zoster Sequential (1 of 2) 2054 Respiratory Syncytial Virus (RSV) Vaccine (1 - 1-dose 75+ series) 2079 HIB Vaccines Aged Out No longer eligi ble based on patient's age to complete this topic Hepatitis A Vaccines Aged Out No long er eligible based on patient's age to complete this topic Meningococcal Vaccines Aged Out No lo nger eligible based on patient's age to complete this topic Pneumococcal Vaccine (0-49 Years) Aged Out No longer eligible based on patient's age to complete this topic Insurance BCBS OUT OF STATE [facility] Address: [facility] [address] [place] [address] Care Teams Surface Water Manager Relationship Specialty Start Date End Date Provider, No Primary . [place] [address] PCP - General 12/10/23 Additional Source Comments PLEASE NOTE: Replies to this message will not be received.[facility] and [facility]
--- OUTSIDE RECORDS SUMMARY | 2025-09-10 08:18 | XMS_ITS | Encounter Summary ---
Author Organization [place] Address [address] [place] [address]. [place] [address] Care Team Providers Care Machine Stone Polisher Name Role Phone No Ref-Primary, Physician Primary Care Provider Sukhdev Paul PA-C Primary Care Provider + Sukhdev Paul PA-C Unavailable [phone] Karla Prado Unavailable [phone] Teetee Alfaro [facility], [facility] Unavailable [phone] Encounter Details Date Type Department Care Team (Latest Contact Info) Description 03/13/2023 [facility] Extended Documentation [facility] [address] [place] [address] Teetee Alfaro, [facility], [facility] Major depressive disorder, recurrent episode, mild with anxious distress (Primary Dx) Social History Tobacco Use Types Packs/Day Years Used Date Smoking Tobacco: Never Assessed PHQ-2 Answer Date Recorded PHQ-2 Score 5 03/13/2023 Comments Unknown Sex and Gender Information Value Date Recorded Sex Assigned at Not on file Legal Sex Female 4:16 PM CDT Gender Identity Not on file Sexual Orientation Not on file documented as of this encounter Plan of Treatment Upcoming Encounters Date Type Department Care Team (Late st Contact Info) Description 06/22/2026 10:00 AM CDT Office Visit [address], [address] [place] [address] Sukhdev Paul PA-C [address] [place] [id number] documented as of this encounter Visit Diagnoses Diagnosis Major depressive disorder, recurrent episode, mild with anxious distress- Primary documented in this encounter Additional Health Concerns Assessment Noted Time PHQ-9 Depression Total Score: 12 023 7:31 AM CDT documented as of this encounter Care Teams Machine Stone Polisher Relationship Specialty Start Date End Date No Ref-Primary, Physician PCP - General 02/07/23 04/05/23 Sukhdev Paul PA-C [address] [place] [address] PCP - General Physician Community Relations Manager - Medical 04/06/23 Sukhdev Paul PA-C [address] [place] [address] Assigned PCP 03/14/23 Karla Prado GC Genetic Counseling Graduate Program Office [address] [place] [address] [address] [place] [address] Genetic Counselor Genetic Counselor, MS 07/30/23 Teetee Alfaro, [facility], [facility] Assigned Behavioral Health Provider 02/26/24 documented as of this encounter
--- OUTSIDE RECORDS SUMMARY | 2025-09-10 08:18 | XMS_ITS | Encounter Summary ---
Author Organization [place] Address [address] [place] [address]. [place] [address] Care Team Providers Care Blocking Machine Tender Name Role Phone Sukhdev Paul PA-C Primary Care Provider + Sukhdev Paul PA-C Unavailable [phone] Karla Prado Unavailable [phone] Teetee Alfaro [facility] L[facility] Unavailable [phone] Encounter Details Date Type Department Care Team (Late st Contact Info) Description 12/10/2023 [facility] [place] [address], [address] [place] [address] Sukhdev Paul PA-C [address] [facility] [address] [place] [address] Social History Tobacco Use Types [...] 10:00 AM CDT Office Visit [facility] [address] [facility], [address] [place] [phone] Sukhdev Paul PA-C [address] [place] [id number] documented as of this encounter Visit Diagnoses Not on filedocumented in this encounter Additional Health Concerns Assessment Noted Time PHQ-9 Depression Total Score: 5 07/10/20 23 12:07 PM CDT documented as of this encounter Care Teams Blocking Machine Tender Relationship Specialty Start Date End Date Sukhdev Paul PA-C [address] [place] [id number] PCP - General Physician Web Support Engineer - Medical 04/06/23 Sukhdev Paul PA-C [address] [place] [address] Assigned PCP 03/14/23 Karla Prado [facility] Graduate [facility] Office [address] [place] [address] [address] [place], [place] [id number] Genetic Counselor Genetic Counselor, MS 07/30/23 Teetee Alfaro, LPCC, LADC Assigned Behavioral Health Provider 02/26/24 documented as of this encounter
--- OUTSIDE RECORDS SUMMARY | 2025-09-10 08:18 | XMS_ITS | Encounter Summary ---
Author Organization [place] Address [address] [place] [address]. [place] [address] Care Team Providers Care Career Development Coordinator Name Role Phone Sukhdev Paul PA-C Primary Care Provider + Sukhdev Paul PA-C Unavailable Karla Prado Unavailable Teetee Alfaro [facility] Unavailable Encounter Details Date Type Department Care Team (Late st Contact Info) Description 06/12/2023 [facility] Medical Advice [address], [address] [place] [address] Sukhdev Paul PA-C [address] [facility] [address] [place] [address] Social History Tobacco Use Types Packs/Day Years Used Date Smoking Tobacco: Never Smokeless Tobacco: Never Alcohol Use Standard Drinks/Week Comments Yes 0 (1 standard drink = 0.6 oz pur e alcohol) 1-2 times per week PHQ-2 Answer Date Recorded PHQ-2 Score 5 05/31/2023 Comments No Sex and Gender Information Value Date Recorded Sex Assigned at Not on file Legal Sex Female 4:16 PM CDT Gender Identity Not on file Sexual Orientation Not on file documented as of this encounter Plan of Treatment Upcoming Encounters Date Type Department Care Team (Late st Contact Info) Description 06/22/2026 10:00 AM CDT Office Visit [address] [facility], [address] [place] [address] Sukhdev Paul PA-C [address] [place] [id number] documented as of this encounter Visit Diagnoses Not on filedocumented in this encounter Additional Health Concerns Assessment Noted Time PHQ-9 Depression Total Score: 10 023 1:36 PM CDT documented as of this encounter Care Teams Career Development Coordinator Relationship Specialty Start Date End Date Sukhdev Paul PA-C [address] [place] [id number] PCP - General Physician Cargo Surveyor - Medical 04/06/23 Sukhdev Paul PA-C [address] [place] [id number] Assigned PCP 03/14/23 Karla Prado GC Genetic Counseling Graduate Program Office [address] [place] [address] [address] [place], [place] [address] Genetic Counselor Genetic Counselor, MS 07/30/23 Teetee Alfaro, [facility] Assigned Behavioral Health Provider 02/26/24 documented as of this encounter
--- OUTSIDE RECORDS SUMMARY | 2025-09-10 08:18 | XMS_ITS | Encounter Summary ---
Author Organization [place] Address [address] [place] [address]. [place] [address] Care Team Providers Care Air Drill Operator Name Role Phone Sukhdev Paul PA-C Primary Care Provider + Sukhdev Paul PA-C Unavailable Karla Prado Unavailable [phone] Teetee Alfaro [facility], L[facility] Unavailable [phone] Encounter Details Date Type Department Care Team (Late st Contact Info) Description 02/13/2024 [facility] Medical Advice [address], [address] [place] [address] Briseida Ricks, MAILE Social History Tobacco Use Types Packs/Day Years Used Date Smoking Tobacco: Never Smokeless Tobacco: Never Alcohol Use Standard Drinks/Week Comments Yes 0 (1 standard drink = 0.6 oz pur e alcohol) 1-2 times per week PHQ-2 Answer Date Recorded PHQ-2 Score 2 01/23/2024 Adolescent Education Answer Date Record ed Getting [...] Description 06/22/2026 10:00 AM CDT Office Visit [address], [address] [place] [address] Sukhdev Paul PA-C [address] [place] [id number] documented as of this encounter Visit Diagnoses Not on filedocumented in this encounter Additional Health Concerns Assessment Noted Time PHQ-9 Depression Total Score: 13 024 9:48 AM CDT documented as of this encounter Care Teams Air Drill Operator Relationship Specialty Start Date End Date Sukhdev Paul PA-C [address] [place] [address] PCP - General Physician Pharmacy Services Representative - Medical 04/06/23 Sukhdev Paul PA-C [address] [place] [id number] Assigned PCP 03/14/23 Karla Prado GC Genetic Counseling Graduate Program Office [address] [place] [address] [address] [place], [place] [address] Genetic Counselor Genetic Counselor, MS 07/30/23 Teetee Alfaro, [facility], LADC Assigned Behavioral Health Provider 02/26/24 documented as of this encounter
--- OUTSIDE RECORDS SUMMARY | 2025-09-10 08:18 | XMS_ITS | Encounter Summary ---
Author Organization [place] Address [address] [place] [address]. [place] [address] Care Team Providers Care Recorder Helper Gravity Prospecting Name Role Phone Sukhdev Paul PA-C Primary Care Provider + Sukhdev Paul PA-C Unavailable [phone] Karla Prado Unavailable Teetee Alfaro [facility] Unavailable [phone] Encounter Details Date Type Department Care Team (Late st Contact Info) Description 04/23/2023 [facility] [place] [address], [address] [place] [address] Sukhdev Paul PA-C [address] [facility] [address] [place] [address] Social History Tobacco Use Types [...] Telephone Encounter - Maggie Wong CMA - 04/24/2023 3:58 PM CDT Please see Mychart message * Telephone Encounter - Sukhdev Paul PA-C - 04/23/2023 5:25 PM CDT Happy to help out. Can we setup a visit to discuss?? In-person or virtual whatever works best * Telephone Encounter - Sheri Perez RN - 04/23/2023 4:21 PM CDT See MyChart from patient needing provider review. Please write back directly to pt or advise if clinic follow up needed. Sheri Heredia, RN [facility] career coordinator Team documented in this encounter Plan of Treatment Upcoming Encounters Date Type Department Care Team (Late st Contact Info) Description 06/22/2026 10:00 AM CDT Office Visit [facility] [address] [facility], [address] [place] [phone] Sukhdev Paul PA-C [address] [place] [address] documented as of this encounter Visit Diagnoses Not on filedocumented in this encounter Additional Health Concerns Assessment Noted Time PHQ-9 Depression Total Score: 11 023 6:13 PM CDT documented as of this encounter Care Teams Recorder Helper Gravity Prospecting Relationship Specialty Start Date End Date Sukhdev Paul PA-C [address] [place] [id number] PCP - General Physician Human Resources Manager - Medical 04/06/23 Sukhdev Paul PA-C [address] [phone] Assigned PCP 03/14/23 Karla Prado GC Genetic Counseling Graduate Program Office [address] [place] [address] [address] [place] [address] Genetic Counselor Genetic Counselor, MS 07/30/23 Teetee Alfaro, [facility] Assigned Behavioral Health Provider 02/26/24 documented as of this encounter
--- OUTSIDE RECORDS SUMMARY | 2025-09-10 08:18 | XMS_ITS | Encounter Summary ---
Author Organization [place] Address [address] [place] [address]. [place] [address] Care Team Providers Care Finisher Hot Strip Name Role Phone Sukhdev Paul PA-C Primary Care Provider + Sukhdev Paul PA-C Unavailable Karla Prado Unavailable Teetee Alfaro [facility], L[facility] Unavailable Encounter Details Date Type Department Care Team (Late st Contact Info) Description 06/23/2025 Results Follow-Up [address], [address] [place] [address] Sukhdev Paul PA-C [address] [facility] [address] [place] [address] Subj: Message about your results Social History Tobacco Use Types Packs/Day Years Used Date Smoking Tobacco: Former Cigarettes Q uit: 11/21/2023 Clove cigarettes or kreteks Smokeless Tobacco: Never Alcohol Use Standard Drinks/Week Comments Yes 0 (1 standard drink = 0.6 oz pur e alcohol) very rare, 1-2 times per week Social Connection and Isolation Panel Answer Date Recorded Frequency of Communication with Friends and Fami ly Not on file 06/18/2025 How often do you get together with friends or re latives? Once a week 06/18/2025 Attends [employer] Services Not on file 06/18 Active Member of Clubs or Organizations Not on f ile 06/18/2025 Attends Club or Organization Meetings Not on david e 06/18/2025 Marital Status Not on file 06/18/2025 PHQ-2 Answer Date Recorded PHQ-2 Score 2 06/18/2025 [facility] [place] [facility] Occupat ional [facility] - Occupational Stress [...] in an abandoned building, in an overnight nursing home, or couch-surfing.) Yes 06/18/2025 Are you [...] on file documented as of this encounter Miscellaneous Notes * Result Encounter Note - Sukhdev Paul PA-C - 06/23/2025 6:46 AM CDT All signed - we will Mychart is over to you this morning. Rest of labs look great! documented in this encounter Plan of Treatment Upcoming Encounters Date Type Department Care Team (Late st Contact Info) Description 06/22/2026 10:00 AM CDT Office Visit [facility] [address] [facility] [address] [facility], [address] [place] [phone] Sukhdev Paul PA-C [address] [place] [address] documented as of this encounter Visit Diagnoses Not on filedocumented in this encounter Additional Health Concerns Assessment Noted Time PHQ-9 Depression Total Score: 9 06/18/20 25 9:56 AM CDT documented as of this encounter Care Teams Finisher Hot Strip Relationship Specialty Start Date End Date Sukhdev Paul PA-C [address] [place] [address] PCP - General Physician Spine Surgeon - Medical 04/06/23 Sukhdev Paul PA-C [address] [place] [phone] Assigned PCP 03/14/23 Karla Prado GC Genetic Counseling Graduate Program Office [address] [place] [address] [address] [place], [place] [address] Genetic Counselor Genetic Counselor, MS 07/30/23 Teetee Alfaro, [facility] Assigned Behavioral Health Provider 02/26/24 documented as of this encounter
--- NOTE | 2025-09-10 08:28 | ED_ITS ---
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 She says she was bending over to pick something up when she felt a twinge, pain quickly became severe when she moves or breathes. It is improved by rest although it does not resolve. She has not taken any medications. She says she tried to walk to class but it was too painful and so she decided she should probably come in. She has no history of prior similar symptoms. Pain is pleuritic and she feels somewhat short of breath as a result. She has not had fevers or cough, no abdominal or chest pain. Does not report any urinary symptoms.She does not smoke or drink significantly. Does not have any significant medical history. Notes an allergy to Versed. Her mom had a DVT after a long flight a couple of years ago. She is on control. Related Data Home Medications ?Medication ?Instructions ?Recorded ?Confirmed etonogestrel 0.12 mg-ethinyl 1 vag ring vaginal MONTHL Y 12/18/23 12/18/23 estradiol 0.015 mg/24 hr vaginal ring (NuvaRing) venlafaxine 37.5 mg 37.5 mg PO DAILY 12/18/23 capsule,extended release 24 hr Allergies Allergy/AdvReac Type Severity Reaction Status Date / Time midazolam (From Versed) Allergy Unknown Verified 09/10/25 08:59 Review of Systems Status of ROS: Reports: 10 or more systems reviewed and unremarkable except as noted in History and below Exam Narrative: Exam Narrative: Vital signs reviewed In general, alert, nontoxic Young woman. She looks comfortable, breathing easily. Speaks in full sentences. Head: Normocephalic, atraumatic. Eyes: Sclera clear. Pupils equal and reactive. ENT: Mucous membranes moist. Neck: Supple without adenopathy. Heart: Mildly tachycardic, regular. Lungs: Clear. No increased work of breathing, crackles or wheezes. She does have reproducible tenderness over the posterior lower left thoracic area, Some mild discomfort with percussion over this area. Abdomen: Soft, nontender to palpation. Extremities: Well perfused, pulses intact. No significant edema. Neurologic: Alert, conversant. Speech fluent, face symmetric. Moves all extremities equally. Skin: Warm, dry well perfused. Affect: Normal. Const: Vital Signs, click to edit/add: Vital Signs - 24 hr 09/10/25 08:17 09/10/25 08:35 09/10/25 08:45 Temperature 96.1 F L Pulse Rate 95 98 Pulse Rate [Pulse Oximeter] 120 H Respiratory Rate 28 H 13 18 Blood Pressure Blood Pressure [Le ft Upper Arm] 143/91 H Blood Pressure [Ri ght Upper Arm] 165/114 H Pulse Oximetry 99 98 97 Oxygen Delivery Me thod Room Air 09/10/25 08:53 09/10/25 08:54 09/10/25 09:04 Temperature Pulse Rate 91 90 Pulse Rate [Pulse Oximeter] Respiratory Rate 18 18 18 Blood Pressure 124/96 H Blood Pressure [Le ft Upper Arm] Blood Pressure [Ri ght Upper Arm] Pulse Oximetry 97 98 Oxygen Delivery Me thod 09/10/25 09:15 Temperature Pulse Rate Pulse Rate [Pulse Oximeter] Respiratory Rate 18 Blood Pressure Blood Pressure [Le ft Upper Arm] Blood Pressure [Ri ght Upper Arm] Pulse Oximetry Oxygen Delivery Me thod Course Course ED Course: Patient presents with left lower thoracic / flank pain, differential diagnosis is fairly broad at this time would include pulmonary etiologies such as pneumothorax, pulmonary embolism, pneumonia, retroperitoneal pathology such as kidney stone or pyelonephritis, aortic dissection, intra-abdominal pathology such as pancreatitis, perforated viscus, etcetera felt to be somewhat less likely in the absence of any abdominal pain or tenderness. Likewise doubt pelvic pathology such as ovarian torsion, ectopic , ovarian cyst, in the absence of any pelvic pain or tenderness. Will give some Toradol, recheck vital signs and see if they improve as she feels more comfortable. She is on control, does have a family history of DVT so will start with a D-dimer, vital signs are not improved with some pain relief, would consider imaging regardless of D-dimer. Vital signs improved, blood pressure 124/96, pulse 90, O2 sats 98%. Respiratory rate 18. She feels somewhat better although pain is not gone. As long as she is not moving she says she feels fine. Her D-dimer returned at 0.49 which is technically normal but so close to abnormal that given her family history and use of oral contraceptives I felt there would be most prudent to just rule out pulmonary embolism. I reviewed the CT scan of her chest with contrast and do not see any evidence of PE or other acute abnormalities. Read as negative by Radiology. Other labs are unremarkable, troponin is 0, CRP is less than 0.5. UA shows moderate bacteria and 1+ leukocyte esterase, but 0-2 red cells and 2-5 white cells, symptoms are not suggestive of pyelonephritis and the strong correlation with movement is not overly suggestive of kidney stone. test negative. Metabolic panel normal. At this time, I think it is reasonable to let her go home, I prescribed some Flexeril, ibuprofen and/or Tylenol over the next few days. Discussed that symptoms may not improve right away but should start to improve in a few days, if no better in a week should be seen by primary care. Return to the ER at any time for severe symptoms such as high fevers, vomiting, significant shortness of breath or other worsening. Vital Signs Vital signs: Initial Vital Signs Temperature 96.1 F L 09/10/25 08:17 Temperature Source Temporal Artery Scan 09/10/25 08:17 Pulse Rate 120 H 09/10/25 08:17 Respiratory Rate 28 H 09/10/25 08:17 Blood Pressure 165/114 H 09/10/25 08:17 Blood Pressure Mean 131 H 09/10/25 08:17 Blood Pressure Position Sitting 09/10/25 08:17 Pulse Oximetry 99 09/10/25 08:17 Oxygen Delivery Method Room Air 09/10/25 08:17 Vital Signs Temperature 96.1 F L 09/10/25 08:17 Pulse Rate 120 H 09/10/25 08:17 Respiratory Rate 28 H 09/10/25 08:17 Blood Pressure 165/114 H 09/10/25 08:17 Pulse Oximetry 99 09/10/25 08:17 Oxygen Delivery Method Room Air 09/10/25 08:17 Temperature 96.1 F L 09/10/25 08:17 Pulse Rate 90 09/10/25 08:54 Respiratory Rate 18 09/10/25 09:15 Blood Pressure 124/96 H 09/10/25 08:53 Pulse Oximetry 98 09/10/25 08:54 Oxygen Delivery Method Room Air 09/10/25 08:17 Medications Administered Medications: Discontinued Medications Generic Name Dose Route Start Last Admin Trade Name Stew PRN Reason Stop Dose Admin Sodium Chloride 500 mls @ 500 mls/hr 09/10/25 08:26 09/10/25 09:36 0.9 % Sodium Chloride 500 Ml IV 09/10/25 09:25 Infused .Q1H ONE Infusion Ketorolac Tromethamine 15 mg 09/10/25 08:26 09/10/25 08:48 Ketorolac 15 Mg/Ml Inj IVP 09/10/25 08:27 15 mg ONCE ONE Administration Medical Decision Making Lab Data Lab results reviewed: Yes I reviewed the patient's lab results Labs: Lab Results 09/10/25 09/10/25 09/10/25 Range/Units 08:27 08:40 09:05 D-Dimer Quant (PE/DVT) 0.49 (0.00-0.50) ug/ml Sodium 138 (135-149) mmol/L Potassium 3.9 (3.6-5.1) mmol/L Chloride 102 (96-114) mmol/L Carbon Dioxide 22 (20-32) mmol/L Anion Gap 14 (7-15) mEq/L BUN 14 (5-24) mg/dL Creatinine 0.9 (0.5-1.5) mg/dL Estimated Creat Clear 88.97 Estimated GFR 93 ml/min Glucose 73 (60-115) mg/dL Calcium 9.8 (8.4-10.6) mg/dL C-Reactive Protein < 0.5 L (0.5-1.0) mg/dL Urine Color Yellow (Yellow) Urine Appearance Clear (Clear) Urine pH 5.5 (5.0-8.5) Ur Specific [place] 1.020 (1.000-1.030) Urine Protein Negative (Negative) Urine Glucose (UA) Negative (Negative) Urine Ketones Negative (Negative) Urine Blood Trace-intact A (Negative) Urine Nitrite Negative (Negative) Urine Bilirubin Negative (Negative) Urine Urobilinogen 0.2 (0.2-1.0) Ur Leukocyte Esterase 1+ A (Negative) Urine RBC 0-2 (0-2) Urine WBC 2-5 (0-5) Ur Squamous Epith Cells Few (None-Few) Urine Bacteria Moderate A (None) Urine HCG, Qual Negative (Negative) POC Troponin I 0.00 L (0.01-0.04) ng/ml Imaging Data CT scan - chest: Attestation: I have reviewed the pertinent imaging results. Radiologist's impression: Patient: Val Rendon MR#: [id number] : 2005 Acct:[id number] Loc: ED Service Date: 09/10/[address]: Ordering Physician: Jewell Somers M.D. Date of Service: 09/10/25 Procedure(s): CT angio chest PE protocol Accession Number(s): [id number] cc: Jewell Somers M.D.; Provider,Not a Local~ For Patients: As a result of the Cures Act, medical imaging exams and procedure reports are released immediately into your electronic medical record. You may view this report before your referring provider. If you have questions, please contact your health care provider. Indication: Left post thoracic pain, sob Technique: CTA chest, pulmonary embolism protocol, utilizing 95 mL Isovue 370 Comparison: None Findings: No imaged thyroid nodules. No thoracic lymphadenopathy. Normal residual thymic tissue in the anterior mediastinum. The heart is within normal limits in size. No CT evidence of right heart strain. No pericardial effusion. The thoracic aorta and pulmonary artery are normal in caliber. There is no appreciable pulmonary embolism. No focal airspace consolidation, pleural effusion, or pneumothorax. No suspicious pulmonary nodules or masses. The airways are clear. The imaged upper abdomen is unremarkable. The soft tissues and bones are unremarkable. Impression: No CT evidence of an acute process involving the thorax. Please note that all CT scans at this facility use dose modulation, iterative reconstruction, and/or weight-based dosing when appropriate to reduce radiation dose to as low as reasonably achievable. Dictated by Nick Lal MD @ 09/10/2025 9:58:15 AM Discharge Plan Discharge Clinical Impression: Thoracic back pain Patient Disposition: Home, Self-Care Condition: Stable Instructions: Thoracic Pain (ED) Additional Instructions: All of your test today are reassuring. There is no evidence of blood clot in your lung or other abnormality such as pneumonia, collapsed lung. No evidence of a kidney infection or stone. Symptoms seem likely to be related to muscle spasm. I would recommend a combination of ibuprofen 400 mg plus Tylenol 1000 mg 3 times a day with food for few days. I have also prescribed a muscle relaxer. I suspect even with these medications it will take a few steps days for the symptoms to improve, but if you are no better in a week you should be seen again for recheck. If you worsen, develop new symptoms such as fever, vomiting etcetera, return to the ER at any time. Prescriptions: No Action etonogestrel-ethinyl estradiol [NuvaRing] 0.12-0.015 mg/24 hr ring 1 vag ring vaginal MONTHLY venlafaxine 37.5 mg capsule,extended release 24hr 37.5 mg PO DAILY Follow Up/Referrals: Provider,Not a Local [Primary Care Provider, Family Practice] Stand Alone Forms: [facility] Info Instructions
[2025-09-10] MEDS: 0.9 % SODIUM CHLORIDE 500 ML 500 ML IV (08:49)
[2025-09-10 09:01] LABS: Chloride* 102 mmol/L (96-114)
[2025-09-10 09:02] LABS: Potassium* 3.9 mmol/L (3.6-5.1); Sodium* 138 mmol/L (135-149)
[2025-09-10 09:05] LABS: Anion Gap 14 mEq/L (7-15); Blood Urea Nitrogen* 14 mg/dL (5-24); Calcium* 9.8 mg/dL (8.4-10.6); Carbon Dioxide* 22 mmol/L (20-32); Creatinine* 0.9 mg/dL (0.5-1.5); Est. Creatinine Clearance* 88.97; Estimated Glomerular Filt Rate 93 ml/min; Glucose* 73 mg/dL (60-115)
[2025-09-10 09:07] LABS: Troponin, Point-of-Care* 0.00 ng/ml (0.01-0.04)
[2025-09-10 09:10] LABS: D Dimer Quantitative* 0.49 ug/ml (0.00-0.50)
[2025-09-10 09:16] LABS: Appearance Urine Clear (Clear)
[2025-09-10 09:20] LABS: Ur HCG Qualitative* Negative (Negative)
--- NOTE | 2025-09-10 09:28 | CRLHL7_ITS ---
For Patients: As a result of the Century Cures Act, medical imaging exams and procedure reports are released immediately into your electronic medical record. You may view this report before your referring provider. If you have questions, please contact your health care provider. Indication: Left post thoracic pain, sob Technique: CTA chest, pulmonary embolism protocol, utilizing 95 mL Isovue 370 Comparison: None Findings: No imaged thyroid nodules. No thoracic lymphadenopathy. Normal residual thymic tissue in the anterior mediastinum. The heart is within normal limits in size. No CT evidence of right heart strain. No pericardial effusion. The thoracic aorta and pulmonary artery are normal in caliber. There is no appreciable pulmonary embolism. No focal airspace consolidation, pleural effusion, or pneumothorax. No suspicious pulmonary nodules or masses. The airways are clear. The imaged upper abdomen is unremarkable. The soft tissues and bones are unremarkable. Impression: No CT evidence of an acute process involving the thorax. Please note that all CT scans at this facility use dose modulation, iterative reconstruction, and/or weight-based dosing when appropriate to reduce radiation dose to as low as reasonably achievable. Dictated by Nick Lal MD @ 09/10/2025 9:58:15 AM (Electronically Signed)
== END 2025-09-10 10:27 | disposition home or self-care (01) ==
PROVIDERS: Emergency Provider Emergency Medicine
DX: M54.6 Pain in thoracic spine (principal); Z30.44 Encounter for surveillance of vaginal ring hormonal contraceptive device; Z86.718 Personal history of other venous thrombosis and embolism
CPT/HCPCS: 36415; 71275; 80048; 81001; 81025; 84484; 85379; 86140; 87086; 96361; 96374; 99284; 99285; J1885; J7030; Q9967